=== PATIENT | male | born 1970 | race Caucasian/White ===

== ENCOUNTER 2020-10-23 10:20 | Emergency (ER) | payer BC ==
[2020-10-23] MEDS ORDERED: Sodium Chloride 0.9% 1,000 ML IV ONE (10:27)
[2020-10-23] MEDS ORDERED: LORazepam 2 MG/ML SDV IVPUSH ONE ×2 (10:27→10:39)
--- NOTE | 2020-10-23 10:31 | EDM.PDOC ---
ED HPI GENERAL MEDICAL PROBLEM - General Chief Complaint: Chest Pain Stated Complaint: CHEST PAIN/SOB Time Seen by Provider: 10/23/20 10:28 Source of Information: Reports: Patient History Limitations: Reports: No Limitations - History of Present Illness INITIAL COMMENTS - FREE TEXT/NARRATIVE: HISTORY AND PHYSICAL: History of present illness: Patient is a 50 year old male who presents to the ED with a close friend who reports he has chest pain, shortness of breathe, and injection site tingling sensation on the left AC (chronic IV methamphetamine user) since last night. Patient presented to the emergency room approximately 10 minutes ago and informed the front office developer that he wanted to check in for "meth treatment program". As soon as the nursing staff had gone out to bring him back into the room he decided to leave the facility, only to return 10 minutes later, checking in with the stated complaints. Patient is an IV methamphetamine user, states he uses daily or every other day for the past few years. He last injected yesterday into the left antecubital site (denies using any other sites). He states shortly after he started to have some tingling sensation to his antecubital space although has not had any decrease or loss of function of the left upper extremity. The friend who has brought the patient in the second time states he lives with her, and has not witnessed any injury, trauma or falls. She states his speech has been clear and she has not noticed any facial drooping, slurred speech or deficits. The friend reports that last night after injecting he was complaining of some shortness of breath and generalized chest pain. Patient denies any fever, chills, headache, change in vision, syncope or near syncope. Denies any back pain, hemoptysis or cough. Denies any abdominal pain, nausea, vomiting, diarrhea, constipation or dysuria. Has not noted any blood in urine or stool. Review of systems: As per history of present illness and below otherwise all systems reviewed and negative. Past medical history: As per history of present illness and as reviewed below otherwise noncontributory. Surgical history: As per history of present illness and as reviewed below otherwise noncontributory. Social history: See social history for further information Family history: As per history of present illness and as reviewed below otherwise n oncontributory. Physical exam: General: Well developed but slightly under nourished 50 year old male. Alert and orientated x 3. Anxious and fidgety appearing. Although he appears nontoxic and in no acute distress. Vital signs have been reviewed by me. Nursing notes were reviewed. HEENT: Atraumatic, normocephalic, pupils equal and reactive bilaterally, negative for conjunctival pallor or scleral icterus, mucous membranes tacky, multiple dental caries/decay, actively grinding teeth/clenched jaw. TMs normal bilaterally, throat clear, neck supple, nontender, trachea midline. No drooling or trismus noted. No meningeal signs. No hot potato voice noted. Lungs: Clear to auscultation bilaterally. No wheezes, rales, or rhonchi. Chest nontender. Normal work of breathing, no accessory muscles used. Heart: S1S2, regular rate and rhythm without overt murmur, gallops, or rubs. No JVD. No peripheral edema Abdomen: Soft, nondistended, nontender. Negative for masses or costovertebral tenderness. Skin: Left AC has scar tissue from chronic injection. Intact, warm, dry. No lesions or rashes noted. Hematologic: No petechiae or purpra. Mucosa appropriate color and normal nail bed color and refill. Extremities: Atraumatic, moves all extremities per self without difficulty or deficits, negative for cords or calf pain. Neurovascular unremarkable. Neuro: Awake, alert, oriented. Cranial nerves II through XII unremarkable. Cerebellum unremarkable. Motor and sensory unremarkable throughout. Exam nonfocal. Psychiatric: Mood and affect are appropriate. Normal thought process. Answering questions appropriately. Notes: *This patient was seen and evaluated during the 2019 SARS-CoV-2 novel coronavirus pandemic period. Community viral transmission is ongoing at time of this encounter and the emergency department is operating under pandemic response procedures. I have had Dr Cervantes assess this patient as he has multiple complaints that keep changing every few minutes. Chest x-ray shows mild platelike atelectasis or scarring left lung base. Relatively shallow inspiration. No focal dense infiltrate or consolidation either lung. Heart size normal. Chest otherwise negative. Head CT is unremarkable. I do not feel he warrants an MRI at this time as he had resolution of his symptoms after the Ativan. He is much more calm, speaking clearly. Neurologically intact. The friend who is at bedside is asking about inpatient drug treatment programming, stating she would like admitted for drugs. Patient states he does not want any inpatient treatment, but is willing to do outpatient treatment. VSS. I will look into this further for the patient and friend. Patient does have a low potassium today. We discussed admission for the low potassium, he refuses stating he doesn't want to be admitted. Symptoms have resolved. The friend is asking if we can admit him here for drug treatment/rehab. We do not have those resources here. Staff had called [facility], they report he can come in for evaluation on Sunday for outpatient treatment. The friend had also requested a call [facility] to see if they have any treatment programming that we could transfer him to, I did call [facility] and they do not have the services available as well. I have talked with the patient about today's findings, in addition to providing specific details for plan of care. Reassessment at the time of disposition demonstrates that the patient is in no acute distress. The patient is stable for discharge, counseling was provided and we discussed in great detail signs and symptoms that would prompt them to return to the Emergency Department. Follow up and supportive care measures were reviewed and discussed. Voices understanding and is agreeable to plan of care. Denies any further questions or concerns at this time. Diagnostics: CBC, CMP, Troponin, EKG, CXR, COVID/Influenza, UA, Drug Screen, ETOH Therapeutics: IV fluids, Ativan, K-Dur Prescription: Potassium Impression: Drug Abuse Hypokalemia Plan: 1. Today your lab work was normal with the exception of low potassium. Please improve your diet and take the replacement potassium as we discussed. There are limited options for inpatient drug treatment programs in [place]. [facility] was contacted, they are willing to see you Sunday for evaluation. . Also, [facility] in [place] does admission on , you can call them to set up an appointment 2. You can alternate Tylenol and ibuprofen as needed for pain and fever management. 3. We encourage you to follow up with your primary care provider and/or recommended specialist in the next few days for re-evaluation and further care/management. 4. If your symptoms should worsen, new symptoms develop or any of the signs and symptoms we discussed should arise please return to the emergency room or call 911 (if needed). Definitive disposition and diagnosis as appropriate pending reevaluation and review of above. Chest Pain Score (Numeric/FACES): 3 - Related Data Allergies Allergy/AdvReac Type Severity Reaction Status Date / Time Penicillins Allergy Other Verified 10/23/20 10:27 Home Meds: Home Meds Potassium Chloride [Klor-Con M20] 20 meq PO BID 7 Days #14 tab.[email or web address].prt 10/23/20 [Rx] ED ROS GENERAL - Review of Systems Review Of Systems: Comprehensive ROS is negative, except as noted in HPI. ED EXAM, GENERAL - Physical Exam Exam: See Below (See dictation) Course - Vital Signs Last Recorded V/S: Last Vital Signs Temp 96.2 F L 10/23/20 10:27 Pulse 84 10/23/20 13:42 Resp 16 10/23/20 13:42 BP 103/71 10/23/20 13:42 Pulse Ox 98 10/23/20 13:42 - Orders/Labs/Meds Orders: Active Orders 24 hr Category Date Time Status EKG Documentation Completion [RC] STAT Care 10/23/20 10:24 Active CULTURE BLOOD [BC] Stat Lab 10/23/20 11:05 Results CULTURE BLOOD [BC] Stat Lab 10/23/20 11:23 Received DRUG SCREEN, URINE [URCHEM] Stat Lab 10/23/20 10:24 Ordered UA RFX JUANITO AND CULT IF INDIC [URIN] Stat Lab 10/23/20 10:24 Ordered Blood Culture x2 Reflex Set [OM.PC] Stat Oth 10/23/20 10:24 Ordered Labs: Laboratory Tests 10/23/20 10/23/20 10/23/20 Range/Units 10:48 11:23 11:23 WBC 5.73 (4.0-11.0) K/uL RBC 4.44 L (4.50-5.90) M/uL Hgb 14.1 (13.0-17.0) g/dL Hct 40.9 (38.0-50.0) % MCV 92.1 (80.0-98.0) fL MCH 31.8 (27.0-32.0) pg MCHC 34.5 (31.0-37.0) g/dL RDW Std Deviation 43.4 (28.0-62.0) fl RDW Coeff of Gely 13 (11.0-15.0) % Plt Count 183 (150-400) K/uL MPV 8.80 (7.40-12.00) fL Neut % (Auto) 64.1 (48.0-80.0) % Lymph % (Auto) 22.2 (16.0-40.0) % [place] % (Auto) 12.7 (0.0-15.0) % Eos % (Auto) 0.7 (0.0-7.0) % Baso % (Auto) 0.3 (0.0-1.5) % Neut # (Auto) 3.7 (1.4-5.7) K/uL Lymph # (Auto) 1.3 (0.6-2.4) K/uL [place] # (Auto) 0.7 (0.0-0.8) K/uL Eos # (Auto) 0.0 (0.0-0.7) K/uL Baso # (Auto) 0.0 (0.0-0.1) K/uL Nucleated RBC % 0.0 /100WBC Nucleated RBCs # 0 K/uL Lactate 1.0 (0.20-2.00) mmol/L Sodium (136-148) mmol/L Potassium (3.5-5.1) mmol/L Chloride (98-107) mmol/L Carbon Dioxide (21.0-32.0) mmol/L BUN (7.0-18.0) mg/dL Creatinine (0.8-1.3) mg/dL Est Cr Clr Drug Dosing mL/min Estimated GFR (MDRD) ml/min Glucose (74-106) mg/dL POC Glucose 99 (60-110) mg/dL Calcium (8.5-10.1) mg/dL Total Bilirubin (0.2-1.0) mg/dL AST (15-37) IU/L ALT (14-63) IU/L Alkaline Phosphatase (46-116) U/L Creatine Kinase (26-308) U/L Troponin I (0.000-0.056) ng/mL Total Protein (6.4-8.2) g/dL Albumin (3.4-5.0) g/dL Globulin (2.6-4.0) g/dL Albumin/Globulin Ratio (0.9-1.6) Ethyl Alcohol mg/dL 10/23/20 10/23/20 Range/Units 11:23 11:23 WBC (4.0-11.0) K/uL RBC (4.50-5.90) M/uL Hgb (13.0-17.0) g/dL Hct (38.0-50.0) % MCV (80.0-98.0) fL MCH (27.0-32.0) pg MCHC (31.0-37.0) g/dL RDW Std Deviation (28.0-62.0) fl RDW Coeff of Gely (11.0-15.0) % Plt Count (150-400) K/uL MPV (7.40-12.00) fL Neut % (Auto) (48.0-80.0) % Lymph % (Auto) (16.0-40.0) % [place] % (Auto) (0.0-15.0) % Eos % (Auto) (0.0-7.0) % Baso % (Auto) (0.0-1.5) % Neut # (Auto) (1.4-5.7) K/uL Lymph # (Auto) (0.6-2.4) K/uL [place] # (Auto) (0.0-0.8) K/uL Eos # (Auto) (0.0-0.7) K/uL Baso # (Auto) (0.0-0.1) K/uL Nucleated RBC % /100WBC Nucleated RBCs # K/uL Lactate (0.20-2.00) mmol/L Sodium 138 (136-148) mmol/L Potassium 3.0 L (3.5-5.1) mmol/L Chloride 101 (98-107) mmol/L Carbon Dioxide 26.2 (21.0-32.0) mmol/L BUN 12 (7.0-18.0) mg/dL Creatinine 1.1 (0.8-1.3) mg/dL Est Cr Clr Drug Dosing 68.77 mL/min Estimated GFR (MDRD) > 60.0 ml/min Glucose 103 (74-106) mg/dL POC Glucose (60-110) mg/dL Calcium 8.2 L (8.5-10.1) mg/dL Total Bilirubin 1.0 (0.2-1.0) mg/dL AST 25 (15-37) IU/L ALT 34 (14-63) IU/L Alkaline Phosphatase 82 (46-116) U/L Creatine Kinase 186 (26-308) U/L Troponin I < 0.050 (0.000-0.056) ng/mL Total Protein 7.2 (6.4-8.2) g/dL Albumin 3.6 (3.4-5.0) g/dL Globulin 3.6 (2.6-4.0) g/dL Albumin/Globulin Ratio 1.0 (0.9-1.6) Ethyl Alcohol < 3.0 mg/dL Meds: Medications Discontinued Medications Generic Name Dose Route Start Last Admin Trade Name Freq PRN Reason Stop Dose Admin Sodium Chloride 1,000 mls @ 999 mls/hr 10/23/20 10:27 10/23/20 10:38 Normal Saline IV 10/23/20 11:27 999 mls/hr STAT ONE Administration Lorazepam 1 mg 10/23/20 10:27 10/23/20 10:38 Ativan IVPUSH 10/23/20 10:28 1 mg ONETIME ONE Administration Lorazepam 1 mg 10/23/20 10:39 10/23/20 10:40 Ativan IVPUSH 10/23/20 10:40 1 mg ONETIME ONE Administration Potassium Chloride 40 meq 10/23/20 12:25 10/23/20 13:43 Klor-Con M20 PO 10/23/20 12:26 40 meq ONETIME ONE Administration Departure - Departure Time of Disposition: 13:30 Disposition: Home, Self-Care 01 Clinical Impression: Drug abuse and dependence, Hypokalemia Prescriptions: Potassium Chloride [Klor-Con M20] 20 meq PO BID 7 Days #14 tab.er.prt Instructions: Hypokalemia Referrals: PCP,Unknown [Primary Care Provider] - Forms: ED Department Discharge Additional Instructions: The following information is given to patients seen in the emergency department who are being discharged to home. This information is to outline your options for follow-up care. We provide all patients seen in our emergency department with a follow-up referral. The need for follow-up, as well as the timing and circumstances, are variable depending upon the specifics of your emergency department visit. If you don't have a primary care physician on staff, we will provide you with a referral. We always advise you to contact your personal physician following an emergency department visit to inform them of the circumstance of the visit and for follow-up with them and/or the need for any referrals to a consulting specialist. The emergency department will also refer you to a specialist when appropriate. This referral assures that you have the opportunity for follow-up care with a specialist. All of these measure are taken in an effort to provide you with optimal care, which includes your follow-up. Under all circumstances we always encourage you to contact your private physician who remains a resource for coordinating your care. When calling for follow-up care, please make the office aware that this follow-up is from your recent emergency room visit. If for any reason you are refused follow-up, please contact the [facility] Emergency Department at and asked to speak to the emergency department charge nurse. [facility] [address] [place] [id number] [address] Thank you for choosing the [facility] emergency department in [place] for your medical needs today. It was a pleasure caring for you. Today you were seen in the emergency department requesting drug treatment programing. 1. Today your lab work was normal with the exception of low potassium. Please improve your diet and take the replacement potassium as we discussed. There are limited options for inpatient drug treatment programs in [place]. [facility] was contacted, they are willing to see you Sunday for evaluation. . Also, [facility] in [place] does admission on week, you can call them to set up an appointment 2. You can alternate Tylenol and ibuprofen as needed for pain and fever management. 3. We encourage you to follow up with your primary care provider and/or recommended specialist in the next few days for re-evaluation and further care/management. 4. If your symptoms should worsen, new symptoms develop or any of the signs and symptoms we discussed should arise please return to the emergency room or call 911 (if needed). Sepsis Event Note (ED) - Evaluation Sepsis Screening Result: No Definite Risk - Focused Exam Vital Signs: Vital Signs Temp Pulse Resp BP Pulse Ox 10/23/20 13:42 84 16 103/71 98 10/23/20 10:27 96.2 F L 75 20 120/77 100 - My Orders Last 24 Hours: My Active Orders 10/23/20 10:24 EKG Documentation Completion [RC] STAT DRUG SCREEN, URINE [URCHEM] Stat UA RFX JUANITO AND CULT IF INDIC [URIN] Stat Blood Culture x2 Reflex Set [OM.PC] Stat 10/23/20 11:05 CULTURE BLOOD [BC] Stat 10/23/20 11:23 CULTURE BLOOD [BC] Stat - Assessment/Plan Last 24 Hours: My Active Orders 10/23/20 10:24 EKG Documentation Completion [RC] STAT DRUG SCREEN, URINE [URCHEM] Stat UA RFX JUANITO AND CULT IF INDIC [URIN] Stat Blood Culture x2 Reflex Set [OM.PC] Stat 10/23/20 11:05 CULTURE BLOOD [BC] Stat 10/23/20 11:23 CULTURE BLOOD [BC] Stat
--- NOTE | 2020-10-23 10:34 | PCM.EKG ---
#1 Interpretation EKG Interpretation Comments: Heart rate = 72 bpm, normal sinus rhythm, normal QRS interval, no STEMI. EKG and rhythm strip interpreted by me at 1024
--- NOTE | 2020-10-23 11:10 | CR ---
INDICATION: Dyspnea. TECHNIQUE: AP portable chest x-ray. FINDINGS: Mild platelike atelectasis or scarring left lung base. Relatively shallow inspiration. No focal dense infiltrate or consolidation either lung. Heart size normal. Chest otherwise negative. Dictated by Juliano Lehman MD @ Oct 23 2020 11:07AM Signed by Dr. Juliano Lehman @ Oct 23 2020 11:08AM
[2020-10-23 12:06] LABS: BLOOD UREA NITROGEN,BUN 12 mg/dL (7.0-18.0); CARBON DIOXIDE,CO2 26.2 mmol/L (21.0-32.0); CHLORIDE,CL 101 mmol/L (98-107); GLUCOSE RANDOM 103 mg/dL (74-106); SODIUM,NA 138 mmol/L (136-148)
--- NOTE | 2020-10-23 12:08 | CT ---
INDICATION: Left-sided facial tingling. TECHNIQUE: Noncontrast axial images. Sagittal and coronal reconstructions. COMPARISON: None. FINDINGS: There is no abnormal intracranial mass effect or midline shift. No acute intracranial hemorrhage is identified. There is [id number] diffuse cerebral atrophy, which is greater than expected for the patient`s age. No appreciable loss of the normal lucero-white matter differentiation or other abnormal areas of attenuation within parenchyma. No acute osseous abnormality. Visualized paranasal sinuses and mastoids are essentially clear. IMPRESSION: No CT evidence of an acute intracranial abnormality. If there is high clinical suspicion for an acute infarct, consider further assessment with MRI. Dictated by Homer Harper MD @ 10/23/2020 12:06:08 PM Please note that all CT scans at this facility use dose modulation, iterative reconstruction, and/or weight-based dosing when appropriate to reduce radiation dose to as low as reasonably achievable. Dictated by: Homer Harper MD @ 10/23/2020 12:06:29 (Electronically Signed)
[2020-10-23] MEDS ORDERED: Potassium Chloride 20 MEQ Tab.ER PO ONE (12:25)
--- NOTE | 2020-10-23 13:42 | PCM.EKG ---
#2 Interpretation EKG Interpretation Comments: Heart rate = 82 bpm, normal sinus rhythm, QTc 478ms, normal QRS interval, no STEMI. EKG and rhythm strip interpreted by me at 1327
== END 2020-10-23 13:45 | disposition home or self-care (01) ==
LOC: MW.ED 10:20
DX: E87.6 Hypokalemia (principal); F19.20 Other psychoactive substance dependence, uncomplicated; Z88.0 Allergy status to penicillin
CPT/HCPCS: 36415; 70450; 71045; 80053; 80179; 82550; 82962; 83605; 84484; 85025; 87040; 93005; 96374; 99285; A9270; J2060; J7030; 93010; 99283